=== PATIENT | male | born 1975 | race Caucasian/White ===

== ENCOUNTER 2019-01-19 11:38 | Emergency (ER) | payer SELFPAY ==
[2019-01-19 11:39] VITALS: BP 115/77; PULSE 69; RESP 16; TEMP 36.3; O2SAT 97; BMI 28.2
[2019-01-19 11:59] VITALS: BP 125/77; PULSE 66; RESP 14; O2SAT 97
--- NOTE | 2019-01-19 12:30 | RAD_ITS ---
STUDY: X-RAY - LEFT HAND, ATTENTION FIFTH FINGER REASON FOR EXAM: Male, 43 years old. Laceration. TECHNIQUE: view(s) of the finger were obtained. COMPARISON: None. FINDINGS: Normal metacarpal head. Normal metacarpophalangeal joint. Normal proximal phalanx. Normal middle phalanx. Normal distal phalanx. Normal proximal interphalangeal joint. Flexion deformity at the distal interphalangeal joint. Diffuse soft tissue swelling and laceration. RAD/Finger(s) Min 2 Views IMPRESSION: Diffuse soft tissue swelling and laceration overlying the distal interphalangeal joint. Electronically Signed: Jonnie Coombs, at 13:18 EST , Service support ,
--- NOTE | 2019-01-19 13:14 | ED.RN ---
Dr Montanez ordered Lidocaine with Epi, after retrieving medication from [facility] states he did not mean to order it with epi. Lidocaine 2% was available to pull from [facility] but Lidocaine 1% was not. After pulling Lidocaine 2% Dr Montanez states he would rather have 1%. This RN called down to pharmacy explaining the need for 1% Lidocaine and that the doctor was in the procedure requesting it at this time. After pharmacy sends the Lidocaine 1% to ED and medication was brought to Dr Montanez, he had already used the Lidocaine 2% so he did not have to delay the procedure any longer. All medications were ordered but only Lidocaine 2% was used and administered by Dr Montanez.
--- NOTE | 2019-01-19 13:28 | ED.VISSUMM ---
- ER Visit Summary Date of Service: 01/19/19 Chief Complaint: [Laceration to left small finger] History of Present Illness: The patient is a 43 M [presents the emergency department complaint of laceration to the left small finger that started prior to arrival in the emergency department. Patient states that he was changing a belt on a mowing tractor when his finger got caught in the belt and lacerated his finger. Patient states he has had a tetanus shot within the last year.] Physical Examination: [Left hand-patient has a 2 cm laceration over the DIP joint of the small finger with inability to extend the digit at the DIP joint. Patient has a 1 cm laceration over the lateral aspect of the proximal phalanx of the small finger. Patient has skin avulsion to the medial aspect of the small finger distal phalanx. Patient has superficial abrasion to the DIP joint dorsally of the left ring finger.] Test Results: [X-rays of the left small finger obtained showed no fractures only a laceration over the DIP joint.] Emergency Department Course and Treatment: [Digital block performed of the small finger using lidocaine 2% total of 6 cc. Wound cleansed with Shur-Clens and irrigated with copious saline. I used a Tourni-cot to obtain good hemostasis. In evaluating the wound I note that the laceration extends into the joint space of the DIP and he has lacerated his extensor tendon. Wound was irrigated with copious saline. Using 5-0 nylon a total of 5 single interrupted sutures applied to the wound over the DIP joint with good wound edge approximation. Using 5-0 nylon a total to using interrupted sutures applied to the smaller laceration over the proximal phalanx.] Treatment Plan: [Plan will be to refer patient to Dr. Rudy Licea for follow-up for possible repair of extensor tendon. Patient will be placed in a aluminum splint. Patient will be started on Keflex.] Disposition: [Discharged home in stable condition] Impression: [Laceration left small finger 2 cm with extensor tendon laceration Laceration left small finger 1 cm with simple repair] This note was generated with [employer] software. It may contain incorrect words, spelling, and punctuation that were not noted in review of the chart prior to signing ED Disposition - Plan for ED Patient: Referrals: Charles Arnold MD [Primary Care Provider] -
--- NOTE | 2019-01-19 13:32 | ED.DCSUM_ITS ---
- ER Visit Summary Date of Service: 01/19/19 Chief Complaint: [Laceration to left small finger] History of Present Illness: The patient is a 43 M [presents the emergency department complaint of laceration to the left small finger that started prior to arrival in the emergency department. Patient states that he was changing a belt on a mowing tractor when his finger got caught in the belt and lacerated his finger. Patient states he has had a tetanus shot within the last year.] Physical Examination: [Left hand-patient has a 2 cm laceration over the DIP joint of the small finger with inability to extend the digit at the DIP joint. Patient has a 1 cm laceration over the lateral aspect of the proximal phalanx of the small finger. Patient has skin avulsion to the medial aspect of the small finger distal phalanx. Patient has superficial abrasion to the DIP joint dorsally of the left ring finger.] Test Results: [X-rays of the left small finger obtained showed no fractures only a laceration over the DIP joint.] Emergency Department Course and Treatment: [Digital block performed of the small finger using lidocaine 2% total of 6 cc. Wound cleansed with Shur-Clens and irrigated with copious saline. I used a Tourni-cot to obtain good hemostasis. In evaluating the wound I note that the laceration extends into the joint space of the DIP and he has lacerated his extensor tendon. Wound was irrigated with c opious saline. Using 5-0 nylon a total of 5 single interrupted sutures applied to the wound over the DIP joint with good wound edge approximation. Using 5-0 nylon a total to using interrupted sutures applied to the smaller laceration over the proximal phalanx.] Treatment Plan: [Plan will be to refer patient to Dr. Rudy Licea for follow-up for possible repair of extensor tendon. Patient will be placed in a aluminum splint. Patient will be started on Keflex.] Disposition: [Discharged home in stable condition] Impression: [Laceration left small finger 2 cm with extensor tendon laceration Laceration left small finger 1 cm with simple repair] This note was generated with [employer] dictation software. It may contain incorrect words, spelling, and punctuation that were not noted in review of the chart prior to signing ED Disposition - Plan for ED Patient: Referrals: Charles Arnold MD [Primary Care Provider] -
--- NOTE | 2019-01-19 13:32 | ED.DEP ---
ED Disposition - Plan for ED Patient: Instructions: ED Laceration Hand, ED Laceration Tendon Prescriptions: Cephalexin [Keflex] 500 mg PO Q6 #40 cap Referrals: Charles Arnold MD [Primary Care Provider] - Rudy Licea MD [STAFF PHYSICIAN] - 3-5 Days
[2019-01-19] MEDS: Cephalexin 250 MG Capsule 500 MG PO (14:07)
[2019-01-19 14:15] VITALS: BP 119/75; PULSE 65; RESP 14; O2SAT 99
== END 2019-01-19 14:16 | disposition home or self-care (01) ==
PROVIDERS: Emergency Provider Emergency Medicine; Family Provider Family Medicine; PCP Family Medicine
DX: S61.217A Laceration without foreign body of left little finger without damage to nail, initial encounter (principal); S66.327A Laceration of extensor muscle, fascia and tendon of left little finger at wrist and hand level, initial encounter; W23.0XXA Caught, crushed, jammed, or pinched between moving objects, initial encounter; Y93.89 Activity, other specified; Y92.9 Unspecified place or not applicable; Z72.0 Tobacco use
CPT/HCPCS: 12001; 73140; 99284

== ENCOUNTER → 2019-03-15 | Outpatient (CLI) | payer BC, SELFPAY ==
[2019-02-28 08:32] VITALS: BMI 28.2
[2019-03-15 17:59] LABS: Uric Acid 7.7 mg/dL (3.5-7.2)
== END | disposition home or self-care (01) ==
PROVIDERS: Family Provider Family Medicine; PCP Family Medicine; Referring Provider Family Medicine; Visit Provider Family Medicine
DX: R60.0 Localized edema (principal)
CPT/HCPCS: 36415; 84550

== ENCOUNTER 2021-03-01 18:19 | Emergency (ER) | payer OTHER, SELFPAY ==
[2019-02-28 08:32] VITALS: BMI 28.2
[2021-03-01 18:20] VITALS: BP 196/134; PULSE 90; RESP 16; TEMP 36.9; O2SAT 96; BMI 30.3
--- NOTE | 2021-03-01 18:45 | EKG12_ITS ---
Test Reason : PALPITATIONS Blood Pressure : / mmHG Vent. Rate : 082 BPM Atrial Rate : 082 BPM P-R Int : 162 ms QRS Dur : 110 ms QT Int : 370 ms P-R-T Axes : 043 -38 046 degrees QTc Int : 432 ms Normal sinus rhythm Left axis deviation Abnormal ECG Confirmed by JOSH BRADFORD, KIN ([id number]), film editor AKIN POSEY ([id number]) on 03/02/2021 2:24:19 PM Referred By: PIYUSH Confirmed By:KIN MORENO MD
--- NOTE | 2021-03-01 18:46 | ED.DCSUM_ITS ---
History of Present Illness Chief Complaint: Palpitations Informant: Patient Onset: Days - 3 Context: Gradual Onset Timing: Continuous Quality: fluttering Location: chest Current Severity: Mild Maximum Severity: Mild Worsened by: nothing Relieved by: nothing Associated Symptoms: fatigued Narrative: 45-year-old male presenting with fluttering sensation in his chest that has been continuous for the past 3 days and present currently, in addition to feeling tired and fatigued despite getting a good amount of sleep. He has had some mild dyspnea with exertion, walking up hills at work, but that has been present for quite a while and is not different or new in the past 3 days. He denies any focal neurologic symptoms. He has chronic pain in his neck that sometimes gives him a migraine but he denies any diplopia. He states he had high blood pressure once remotely, he was put on medicine for about a month and then advised to discontinue it. He states he is not really a doctor person so he does not see primary care often but he did see him about a year ago. He checked his blood pressure today at home and it was in the 190s as it was here in triage, but at the time of exam he is 168/121, and he states the last time he checked it at home before today was a long time ago. Past Medical History - Allergies and Home Meds Allergies/Adverse Reactions: Allergies No Known Allergies Allergy (Verified 03/01/21 18:19) Primary Care Physician: Charles Arnold MD [Primary Care Provider] - As soon as possible Past Medical History: None Smoking Status: Current every day smoker Review of Systems General: Reports: Malaise. Denies: Chills, Fever, Sweats Eyes: Denies: Visual changes - bilaterally, Diplopia ENT: Denies: Bilateral ear pain, Rhinorrhea, Sore throat Cardiovascular: Reports: Chest pain - fluttering only, Palpitations - fluttering Respiratory: Reports: Dyspnea on exertion. Denies: Dyspnea, Cough, Orthopnea Gastrointestinal: Denies: Abdominal pain, Nausea, Vomiting, Diarrhea, Melena, Hematochezia Genitourinary: Denies: Dysuria, Hematuria, Frequency Musculoskeletal: Denies: Myalgias, Back pain, Swelling, Extremity Pain Skin: Denies: Rash, Wounds Neurological: Reports: Headache - off and on, not currently. Denies: Weakness, Numbness Physical Exam Vital Signs/Narrative: Vital Signs Temp Pulse Resp BP Pulse Ox 03/01/21 18:20 98.4 F 90 16 196/134 H 96 Inital Vital Signs reviewed: Yes General: Well nourished, Well developed, No Acute Distress Head: Normocephalic, Atraumatic Eyes: Perrl, EOMI ENT: Moist mucous membranes, No rhinorrhea Neck: Supple, Nontender, No lymphadenopathy, No JVD Cardiovascular: Regular rate, Regular rhythm, No murmurs, Normal S1, Normal S2. Negative for: Irregular, Tachycardia Respiratory: No distress, CTA bilaterally, Chest nontender Abdomen: Soft, Nontender, Nondistended, Normal bowel sounds Back: Nontender, Normal Inspection Extremities: Nontender, No edema Skin: Normal color, No rash, No Trauma Neurological: Alert, Oriented x3, Cranial nerves II-XII grossly intact, Normal Strength, Normal Sensation, Normal Gait Psychological: Normal affect, Normal Mood Diagnostic/Tx/Re-eval Impressions Chest X-Ray 03/01/21 19:02 IMPRESSION: Normal x-ray examination of the chest. Electronically Signed: Abraham Goldberg MD at 19:53 EDT , Service support , 03/01/21 19:02 Chest 1 View (Portable) [RAD] Stat Laboratory Results 03/01/21 03/01/21 03/01/21 18:48 18:48 19:48 WBC 9.6 RBC 4.73 Hgb 15.3 Hct 45.9 MCV 97.0 H MCH 32.3 H MCHC 33.3 RDW Std Deviation 48.1 H RDW Coeff of Abdiel 13.3 Plt Count 290 MPV 10.6 Immature Gran % (Auto) 0.300 Neut % (Auto) 55.5 Lymph % (Auto) 27.5 Dillon % (Auto) 9.1 Eos % (Auto) 6.7 H Baso % (Auto) 0.9 Absolute Neuts (auto) 5.3 Absolute Lymphs (auto) 2.65 Nucleated RBC % 0 Sodium 138 Potassium 3.6 Chloride 105 Carbon Dioxide 30.0 Anion Gap 3 L BUN 13 Creatinine 0.96 Estim Creat Clear Calc 108.66 Est GFR (MDRD) Af Amer 108 Est GFR (MDRD) Non-Af 89 BUN/Creatinine Ratio 13.5 Glucose 95 Calcium 9.8 Troponin I < 0.015 Urine Color Straw Urine Clarity Clear Urine pH 6.0 Ur Specific [place] 1.020 Urine Protein 15 H Urine Glucose (UA) Normal Urine Ketones Negative Urine Occult Blood 10 H Urine Nitrite Negative Urine Bilirubin Negative Urine Urobilinogen Normal Ur Leukocyte Esterase 25 H Urine RBC 0 SEEN Urine WBC 5-10 SEEN Ur Squamous Epith Cells 0-5 SEEN Ur Renal Epithelial Cell 0-5 SEEN Urine Bacteria 1+ Urine Mucus 0 SEEN - Rhythm Strip Rhythm Strip: Sinus Rhythm Rate: 82 Ectopy: None - EKG Initial EKG Interpretation: Sinus Rhythm, No Acute Injury Pattern, LAFB Prior: No Prior - Medical Decision Making Patient is having active palpitations while he has a normal rhythm on the monitor and his EKG, he was reassured this was not a dysrhythmia given that his symptoms are present and have been constant. Furthermore, he is not having acute coronary syndrome given that his troponin is negative and his EKG shows no acute injury with 3 days of constant symptoms. Since the rest of the work-up is okay, it is certainly possible that his symptoms are related and due to his hypertension that has been out of control. I gave him some clonidine and lisinopril here, reevaluation his blood pressure is lower at 132/92. He was given a prescription for lisinopril 20 mg which he will start tomorrow and advised to follow-up with his doctor after the weekend. He is comfortable with that plan we discussed reasons to return. ED Disposition - Plan for ED Patient: Disposition: Home or Assisted Living Diagnosis: Palpitations with regular cardiac rhythm, Accelerated hypertension Instructions: ED Hypertension, New (Begin Treatment), ED Palpitations Prescriptions: Lisinopril [Zestril] 20 mg PO DAILY #30 tablet Transmission Status: Pending to [id number] Referrals: Charles Arnold MD [Primary Care Provider] - As soon as possible
[2021-03-01 18:58] LABS: Absolute Lymphocyte Count 2.65 X10^3/uL (0.83-4.51); Absolute Neutrophil Count 5.3 X10^3/uL (2.0-7.7); Basophil# 0.09 X10^3/uL; Basophil% 0.9 % (0-1); Eosinophil# 0.64 X10^3/uL; Eosinophils% 6.7 % (0-5); Hematocrit 45.9 % (40-54); Hemoglobin 15.3 g/dL (13.0-16.5); Lymphocyte # 2.65 X10^3/ul (4.0); Lymphocyte % 27.5 % (19-41); Mean Corp Hgb Conc 33.3 g/dL (32-36); Mean Corpuscular Hgb 32.3 pg (27.0-32.0); Mean Platelet Vol. 10.6 fl (6.2-12.0); Monocyte# 0.88 X10^3/uL; Monocyte% 9.1 % (0-10); NRBC Flagged by Analyzer 0 % (0-5); Neutrophil # 5.33 X10^3/uL (2.7-7.7); Neutrophil % 55.5 % (47-70); Platelet Count 290 K/mm3 (150-450); RBC Distribution Width CV 13.3 % (11.6-14.6); RBC Distribution Width SD 48.1 fl (35.1-43.9); Red Blood Count 4.73 M/mm3 (4.6-6.2); White Blood Count 9.6 K/mm3 (4.4-11.0)
--- NOTE | 2021-03-01 19:02 | RAD_ITS ---
STUDY: X-RAY CHEST REASON FOR EXAM: Male, 45 years old. chest pain TECHNIQUE: Single AP portable view of the chest. COMPARISON: None. FINDINGS: The lungs are clear and expanded. There is no demonstrated pleural abnormality. Normal size heart. Normal mediastinum and sherrie. Normal visualized pulmonary arteries. Normal visualized aortic arch and descending thoracic aorta. Normal visualized thoracic spine. Normal visualized ribs, clavicles, and shoulders. There is no demonstrated abnormality of the visualized soft tissue structures of the upper abdomen. RAD/Chest 1 View (Portable) IMPRESSION: Normal x-ray examination of the chest. Electronically Signed: Abraham Goldberg MD at 19:53 EDT , Service support ,
[2021-03-01] MEDS: cloNIDine HCl 0.2 MG Tablet PO (19:24)
[2021-03-01] MEDS: Lisinopril 10 MG Tablet PO (19:24)
[2021-03-01 19:25] LABS: Anion Gap 3 (5-15); BUN 13 mg/dL (7-18); BUN/Creat Ratio 13.5 RATIO (10-20); Calcium,Total 9.8 mg/dL (8.5-10.1); Chloride 105 mmol/L (98-107); Creatinine, Serum 0.96 mg/dL (0.70-1.30); EST Glomerular Filtration Rate 89 mL/min (>60); Est Glom Filt Rate - Afr Amer 108 mL/min (>60); Estimated Creatinine Clearance 108.66 ml/min; Glucose 95 mg/dL (74-106); Potassium 3.6 mmol/L (3.5-5.1); Sodium Level 138 mmol/L (136-145)
[2021-03-01 19:52] LABS: Mucous, Urine 0 SEEN /hpf (<or=2+); Red Blood Cells-Urine 0 SEEN /hpf (0-5)
[2021-03-01 19:57] LABS: Color, Urine Straw (Yellow); Glucose, Dipstick Normal (Normal); Ketone-Dipstick Negative (Negative); Leukocyte Esterase-Dipstick 25 /ul (Negative); Nitrite-Dipstick Negative (Negative); Occult Blood-Urine 10 /ul (Negative); Protein-Dipstick 15 mg/dl (Negative); Urine Bilirubin Dipstick Negative (Negative); Urine Clarity Clear (Clear); Urine Urobilinogen Normal (Normal)
[2021-03-01 20:05] LABS: Bacteria 1+ /hpf (None Seen); Renal Epithelial Cells 0-5 SEEN /hpf (0-5); Squamous Epithelial Cells - UA 0-5 SEEN /hpf (0-5); White Blood Cells 5-10 SEEN /hpf (0-5)
[2021-03-01 20:09] VITALS: BP 166/110
[2021-03-01 21:20] VITALS: BP 132/92; PULSE 90; RESP 17; O2SAT 95
== END 2021-03-01 21:20 | disposition home or self-care (01) ==
PROVIDERS: Emergency Provider Emergency Medicine; PCP Family Medicine
DX: R00.2 Palpitations (principal); I10 Essential (primary) hypertension; R06.09 Other forms of dyspnea; M54.2 Cervicalgia; G89.29 Other chronic pain; F17.200 Nicotine dependence, unspecified, uncomplicated
CPT/HCPCS: 71045; 80048; 81001; 84484; 85025; 93005; 99285; A4216

== ENCOUNTER → 2021-07-28 10:22 | Outpatient (CLI) | payer OTHER, SELFPAY ==
[2021-07-28 12:25] LABS: Anion Gap 2 (5-15); BUN 12 mg/dL (7-18); BUN/Creat Ratio 14.9 RATIO (10-20); Calcium,Total 9.8 mg/dL (8.5-10.1); Chloride 110 mmol/L (98-107); Creatinine, Serum 0.81 mg/dL (0.70-1.30); EST Glomerular Filtration Rate 109 mL/min (>60); Est Glom Filt Rate - Afr Amer 132 mL/min (>60); Glucose 95 mg/dL (74-106); Potassium 3.6 mmol/L (3.5-5.1); Sodium Level 139 mmol/L (136-145)
== END ==
PROVIDERS: PCP Family Medicine; Visit Provider Family Medicine
DX: I10 Essential (primary) hypertension (principal)
CPT/HCPCS: 36415; 80048

== ENCOUNTER 2021-12-28 14:28 | Outpatient (CLI) | payer OTHER, SELFPAY ==
[2021-12-28 18:40] LABS: Anion Gap 4 (5-15); BUN 10 mg/dL (7-18); BUN/Creat Ratio 11.2 RATIO (10-20); Chloride 106 mmol/L (98-107); Cholesterol 142 mg/dL (200); EST Glomerular Filtration Rate 97 mL/min (>60); Est Glom Filt Rate - Afr Amer 117 mL/min (>60); Glucose 81 mg/dL (74-106); High Density Lipoprotein 20 mg/dL; Potassium 3.8 mmol/L (3.5-5.1); Sodium Level 138 mmol/L (136-145); Thyroid Stim Hormone (TSH) 0.78 uIU/mL (0.358-3.74); Triglycerides 362 mg/dL; Very Low Density Lipoprotein 72 mg/dL (5-40)
== END 2021-12-28 23:59 | disposition home or self-care (01) ==
LOC: MFPLAB 14:29
PROVIDERS: PCP Family Medicine; Visit Provider Family Medicine
DX: I10 Essential (primary) hypertension (principal); R53.83 Other fatigue
CPT/HCPCS: 36415; 80048; 80061; 82306; 84443

== ENCOUNTER → 2023-07-26 | Outpatient (CLI) | payer OTHER, SELFPAY ==
[2023-07-26 14:41] LABS: Absolute Neutrophil Count 9.2 X10^3/uL (2.0-7.7); Basophil# 0.06 X10^3/uL; Basophil% 0.5 % (0-1); Eosinophil# 0.17 X10^3/uL; Eosinophils% 1.3 % (0-5); Hematocrit 48.1 % (40-54); Hemoglobin 16.3 g/dL (13.0-16.5); Lymphocyte % 18.7 % (19-41); Mean Corp Hgb Conc 33.9 g/dL (32-36); Mean Corpuscular Hgb 31.7 pg (27.0-32.0); Mean Corpuscular Volume 93.6 fL (80-94); Mean Platelet Vol. 10.5 fl (6.2-12.0); Monocyte# 0.95 X10^3/uL; Monocyte% 7.4 % (0-10); NRBC Flagged by Analyzer 0 % (0-5); Neutrophil # 9.17 X10^3/uL (2.7-7.7); Neutrophil % 71.6 % (47-70); Platelet Count 353 K/mm3 (150-450); RBC Distribution Width CV 12.7 % (11.6-14.6); RBC Distribution Width SD 44.2 fl (35.1-43.9); Red Blood Count 5.14 M/mm3 (4.6-6.2); White Blood Count 12.8 K/mm3 (4.4-11.0)
[2023-07-26 15:01] LABS: ALB/GLOB Ratio 1.2 RATIO (0.9-2.4); AST(SGOT) 16 U/L (15-37); Alanine Aminotransfer ALT/SGPT 27 U/L (16-61); Albumin, Serum 4.2 g/dL (3.2-5.0); Alkaline Phosphatase 105 U/L (45-117); Anion Gap 7 (5-15); BUN 31 mg/dL (7-18); BUN/Creat Ratio 14.1 RATIO (10-20); Calcium,Total 9.5 mg/dL (8.5-10.1); Chloride 97 mmol/L (98-107); Cholesterol 185 mg/dL (200); EST Glomerular Filtration Rate 34 mL/min (>60); Est Glom Filt Rate - Afr Amer 41 mL/min (>60); Globulin 3.6 g/dL (2.2-4.2); Glucose 128 mg/dL (74-106); High Density Lipoprotein 30 mg/dL; Protein, Total 7.8 g/dL (6.4-8.2); Sodium Level 131 mmol/L (136-145); Triglycerides 312 mg/dL; Very Low Density Lipoprotein 62 mg/dL (5-40)
[2023-07-26 15:02] LABS: Vitamin D,25 Hydroxy 10.9 ng/mL
== END | disposition home or self-care (01) ==
LOC: MFPLAB 13:59
PROVIDERS: PCP Family Medicine; Visit Provider Family Medicine
DX: I10 Essential (primary) hypertension (principal); E55.9 Vitamin D deficiency, unspecified
CPT/HCPCS: 36415; 80053; 80061; 82306; 84443; 85025

== ENCOUNTER → 2023-08-02 | Outpatient (CLI) | payer OTHER, SELFPAY ==
[2023-08-02 18:19] LABS: Anion Gap 3 (5-15); BUN 32 mg/dL (7-18); BUN/Creat Ratio 25.2 RATIO (10-20); Calcium,Total 10.3 mg/dL (8.5-10.1); Chloride 101 mmol/L (98-107); Creatinine, Serum 1.27 mg/dL (0.70-1.30); EST Glomerular Filtration Rate 64 mL/min (>60); Est Glom Filt Rate - Afr Amer 77 mL/min (>60); Glucose 80 mg/dL (74-106); Potassium 5.3 mmol/L (3.5-5.1); Sodium Level 134 mmol/L (136-145)
== END | disposition home or self-care (01) ==
LOC: MFPLAB 16:27
PROVIDERS: PCP Family Medicine; Visit Provider Family Medicine
DX: R79.89 Other specified abnormal findings of blood chemistry (principal)
CPT/HCPCS: 36415; 80048

== ENCOUNTER → 2023-08-09 | Outpatient (CLI) | payer OTHER, SELFPAY ==
[2023-08-09 18:12] LABS: Potassium 3.9 mmol/L (3.5-5.1)
== END | disposition home or self-care (01) ==
LOC: MFPLAB 16:02
PROVIDERS: PCP Family Medicine; Visit Provider Family Medicine
DX: E87.5 Hyperkalemia (principal)
CPT/HCPCS: 36415; 84132

== ENCOUNTER → 2024-04-19 | Outpatient (CLI) | payer OTHER, SELFPAY ==
[2024-04-19 16:19] LABS: Anion Gap 7 (5-15); BUN 10 mg/dL (7-18); BUN/Creat Ratio 9.5 RATIO (10-20); Calcium,Total 9.7 mg/dL (8.5-10.1); Chloride 108 mmol/L (98-107); Creatinine, Serum 1.05 mg/dL (0.70-1.30); EST Glomerular Filtration Rate 80 mL/min (>60); Est Glom Filt Rate - Afr Amer 96 mL/min (>60); Glucose 96 mg/dL (74-106); Potassium 3.7 mmol/L (3.5-5.1); Sodium Level 140 mmol/L (136-145)
[2024-04-19 16:23] LABS: Vitamin D,25 Hydroxy 19.1 ng/mL
== END | disposition home or self-care (01) ==
LOC: MFPLAB 12:18
PROVIDERS: PCP Family Medicine; Visit Provider Family Medicine
DX: I10 Essential (primary) hypertension (principal); E55.9 Vitamin D deficiency, unspecified
CPT/HCPCS: 36415; 80048; 82306